=== PATIENT | female | born 1985 | race Caucasian/White ===

== ENCOUNTER 2018-03-25 07:34 | Emergency (ER) | payer SELFPAY ==
[~2018-03-25] VITALS: Ht 165.1 cm; Wt 55.0 kg
[~2018-03-25 07:34] MED LIST: PRENATAL VITS
[2018-03-25] MEDS ORDERED: KETOROLAC 30MG/ML VIAL IV STA (07:54)
[2018-03-25] MEDS ORDERED: SODIUM CHLORIDE 0.9% 1,000 ML IV ONE (07:54)
[2018-03-25] MEDS ORDERED: ONDANSETRON HCL 4MG/2ML INJ IV STA (07:54)
[2018-03-25] MEDS ORDERED: FAMOTIDINE 20MG/2ML VIAL IV ONE (08:00)
[2018-03-25 08:23] LABS: CLARITY URINE TURBID (CLEAR); COLOR URINE DARK YELLOW (YELLOW); KETONES URINE 1+ (NEGATIVE); LEUKOCYTE ESTERASE URINE 2+ (NEGATIVE); NITRITE URINE NEGATIVE (NEGATIVE); OCCULT BLOOD URINE 3+ (NEGATIVE); PROTEIN URINE 1+ (NEGATIVE); SPECIFIC GRAVITY URINE 1.034 (1.005-1.030)
[2018-03-25 08:44] LABS: CHLORIDE 104 mEq/L (98-107)
[2018-03-25 08:52] LABS: HEMATOCRIT. 41.1 % (36.0-48.0); HEMOGLOBIN. 13.6 g/dL (12.0-16.0); MEAN CORPUSCULAR HEMOGLOBIN 28.5 pg (28.0-32.0); MEAN PLATELET VOLUME 8.3 fl (7.4-10.4); PLATELET 364 x1000/uL (130-400); RED BLOOD CELL COUNT 4.77 mill/uL (4.2-5.4); RED CELL DISTRIBUTION WIDTH 13.8 % (11.6-14.6)
[2018-03-25 09:44] LABS: PLATELET ESTIMATE NORMAL
[2018-03-25] MEDS ORDERED: CEFTRIAXONE 1 G PREMIX 50 ML IV ONE ×2 (10:00→11:30)
[2018-03-25 13:58] VITALS: BP 90/47
[2018-03-25 14:45] LABS: *BARBITURATES SCREEN URINE NEGATIVE (NEGATIVE)
[2018-03-25 14:46] LABS: *BENZODIAZEPINES SCREEN URINE NEGATIVE (NEGATIVE); *COCAINE SCREEN URINE NEGATIVE (NEGATIVE); METHADONE URINE SCREEN NEGATIVE (NEGATIVE); OPIATES URINE SCREEN NEGATIVE (NEGATIVE); PHENCYCLIDINE URINE SCREEN NEGATIVE (NEGATIVE)
[2018-03-25 14:47] LABS: *AMPHETAMINES SCREEN URINE PRESUMTIVE POSITIVE (NEGATIVE); CANNABINOID URINE SCREEN PRESUMTIVE POSITIVE (NEGATIVE)
== END 2018-03-25 14:00 | disposition home or self-care (01) ==
LOC: ER 07:44 → CANBEDREQ 14:07
DX: N12 Tubulo-interstitial nephritis, not specified as acute or chronic (principal)
CPT/HCPCS: 36415; 74176; 80053; 80305; 81003; 81025; 83605; 83690; 85025; 87040; 87086; 96361; 96365; 96375; 99285; J0696; J1885; J2405; J3490; J7030; Z7610